=== PATIENT | female | born 1970 | race Caucasian/White ===

== ENCOUNTER 2021-09-05 15:09 | Inpatient (IN) | payer OTHER ==
[~2021-09-05] VITALS: Ht 182.9 cm; Wt 64.2 kg
[2021-09-05 16:39] LABS: HEMOGLOBIN 13.5 gm/dl (12.3-15.3); RED BLOOD COUNT 3.34 M/UL (4.00-5.10); WHITE BLOOD COUNT 9.2 K/UL (4.5-11.0)
[2021-09-05 17:02] LABS: BUN/CREATININE RATIO 7 (0-10)
[2021-09-05] MEDS ORDERED: CEFDINIR300 MG PO (20:58)
[2021-09-05] MEDS ORDERED: FEXOFENADINE H180 MG PO (20:58)
[2021-09-05] MEDS ORDERED: ATORVASTATIN CA40 MG PO (20:59)
[2021-09-05] MEDS ORDERED: ALLERGY RELIEF10 M1 PO (20:59)
[2021-09-05] MEDS ORDERED: ONDANSETRON ODT4 MG PO (20:59)
[2021-09-05] MEDS ORDERED: LOPRESSOR 25 MG25 MG PO (21:00)
[2021-09-06 03:50] LABS: WHITE BLOOD COUNT 7.3 K/UL (4.5-11.0)
[2021-09-06 03:53] LABS: HEMOGLOBIN 10.9 gm/dl (12.3-15.3); RED BLOOD COUNT 2.79 M/UL (4.00-5.10)
[2021-09-06 04:13] LABS: BUN/CREATININE RATIO 11 (0-10)
--- NOTE | 2021-09-06 10:10 | NUR ---
PT WAS ADVISED NOT TO LEAVE THE FLOOR, ALTHOUGH SHE STILL FELT IF SHE NEEDED TO STRETCH HER LEGS. I TOLD HER I DID NOT FEEL SAFE LETTING HER GO, BUT IF SHE JOSE EDUARDOOUTABRAM HAD TO LEAVE THE FLOOR THEN SHE COULD BE PUSHED BY HER IN A WHEEL CHAIR. PT SAID SHE UNDERSTOOD AND AGREED TO A TELEBOX IN ORDER TO KEEP UP WITH HER HR.
[2021-09-06] MEDS ORDERED: MULTIVITAMIN1 EACH PO (12:30)
[2021-09-06] MEDS ORDERED: MONTELUKAST SOD10 MG PO (12:30)
[2021-09-07 03:28] LABS: HEMOGLOBIN 10.5 gm/dl (12.3-15.3); RED BLOOD COUNT 2.64 M/UL (4.00-5.10)
[2021-09-07 03:31] LABS: WHITE BLOOD COUNT 10.1 K/UL (4.5-11.0)
[2021-09-07 03:38] LABS: BUN/CREATININE RATIO 10 (0-10)
[2021-09-07] MEDS ORDERED: NICOTINE PATCH1 EAC2 TD (13:18)
[2021-09-07] MEDS ORDERED: ASPIRIN EC81 MG PO (13:18)
[2021-09-07] MEDS ORDERED: HUMIBID LA TAB600 MG PO (13:18)
[2021-09-07] MEDS ORDERED: OMNICEF 300 MG300 MG PO (13:18)
[2021-09-07] MEDS ORDERED: IPRATROPIU0.2 MG/1 M NEB (13:18)
[2021-09-07] MEDS ORDERED: PROTONIX 40 MG40 M1 PO (13:18)
[2021-09-07] MEDS ORDERED: BUDESONIDE0.5 MG/2 M NEB (13:18)
[2021-09-07] MEDS ORDERED: LEVALBUTER0.63 MG/3 NEB (13:18)
[2021-09-07] MEDS ORDERED: LOPRESSOR 25 MG25 MG PO (13:18)
[2021-09-07] MEDS ORDERED: KLOR-CON M2020 MEQ PO (13:33)
[2021-09-07] MEDS ORDERED: XOPENEX HFA15 GM INH (13:33)
== END 2021-09-07 15:30 | disposition home or self-care (01) | DRG 871 ==
LOC: ER1 15:09 → CDU 18:27 → PROG CARE 18:27
PROVIDERS: ADMIT Internal Medicine
PROC: 3E03329 Introduction of Other Anti-infective into Peripheral Vein, Percutaneous Approach (ICD-10-PCS; principal; 2021-09-05)
PROC: B24BZZZ Ultrasonography of Heart with Aorta (ICD-10-PCS; 2021-09-06)
DX: A41.9 Sepsis, unspecified organism (principal); R65.21 Severe sepsis with septic shock; J96.01 Acute respiratory failure with hypoxia; Z20.822 Contact with and (suspected) exposure to COVID-19; J96.02 Acute respiratory failure with hypercapnia; I21.A1 Myocardial infarction type 2; E87.1 Hypo-osmolality and hyponatremia; E46 Unspecified protein-calorie malnutrition; Z68.1 Body mass index [BMI] 19.9 or less, adult; E87.6 Hypokalemia; J43.9 Emphysema, unspecified; I10 Essential (primary) hypertension; E78.5 Hyperlipidemia, unspecified; D75.89 Other specified diseases of blood and blood-forming organs; M54.50 Low back pain, unspecified; D64.9 Anemia, unspecified; K21.9 Gastro-esophageal reflux disease without esophagitis; F41.9 Anxiety disorder, unspecified; E86.0 Dehydration; J20.9 Acute bronchitis, unspecified; F17.210 Nicotine dependence, cigarettes, uncomplicated; W18.30XA Fall on same level, unspecified, initial encounter; Y92.091 Bathroom in other non-institutional residence as the place of occurrence of the external cause; Z88.8 Allergy status to other drugs, medicaments and biological substances; Z82.49 Family history of ischemic heart disease and other diseases of the circulatory system
CPT/HCPCS: ECHO; 36415; 36600; 70450; 71045; 78452; 80053; 80061; 81001; 82550; 82553; 82607; 82746; 82803; 83605; 83880; 84132; 84439; 84443; 84484; 85025; 85379; 86140; 87040; 93005; 93017; 93306; 94640; 94664; 94760; 99285; A9502; J0692; J1650; J2785; U0002